=== PATIENT | female | born 1970 | race Caucasian/White ===

== ENCOUNTER 2024-11-30 10:31 | Outpatient (CLI) | payer SELFPAY ==
--- NOTE | 2024-11-30 10:45 | CRLHL7_ITS ---
For Patients: As a result of the Cures Act, medical imaging exams and procedure reports are released immediately into your electronic medical record. You may view this report before your referring provider. If you have questions, please contact your health care provider. BILATERAL DIAGNOSTIC MAMMOGRAM WITH COMPUTER-AIDED DETECTION AND TOMOSYNTHESIS LEFT BREAST ULTRASOUND CLINICAL HISTORY: LEFT breast pain. COMPARISON: 07/29/2020. TECHNIQUE: BILATERAL mammogram in four projections with computer-aided detection. Tomosynthesis was used in this interpretation. Real-time ultrasound imaging of LEFT breast with imaging documentation. BREAST COMPOSITION: There are scattered areas of fibroglandular density. FINDINGS: BILATERAL CC/MLO mammogram images submitted. No suspicious masses or architectural distortion. No suspicious calcifications or adenopathy. Targeted LEFT breast ultrasound performed in the area of concern in the subareolar space. Normal fibroglandular tissue is present. No fibrocystic change or mass. IMPRESSION: No suspicious findings. No evidence of malignancy. RECOMMENDATIONS: Routine screening mammography. A lay language report of this examination will be provided to the patient. BI-RADS Category 2: Benign Dictated by Floyd Brewster MD @ 11/30/2024 12:10:32 PM /sp SP/Dictated by: Floyd Brewster MD @ 11/30/2024 12:10:00 PM (Electronically Signed)
--- NOTE | 2024-11-30 11:15 | CRLHL7_ITS ---
For Patients: As a result of the Century Cures Act, medical imaging exams and procedure reports are released immediately into your electronic medical record. You may view this report before your referring provider. If you have questions, please contact your health care provider. PLEASE SEE BILATERAL BREAST DIAGNOSTIC MAMMOGRAM PERFORMED SAME DAY. CRL/sp SP/Dictated by: Floyd Brewster MD @ 11/30/2024 12:10:00 PM (Electronically Signed)
== END 2024-11-30 10:32 | disposition home or self-care (01) ==
LOC: MAMMO 10:32
PROVIDERS: Visit Provider Nurse Practitioner Family
DX: N64.4 Mastodynia (principal)
CPT/HCPCS: 76642; 77066; G0279